=== PATIENT | female | born 1965 | race Caucasian/White ===

== ENCOUNTER → 2017-09-18 07:25 | Outpatient (CLI) | payer OTHER, SELFPAY ==
[2017-09-26 09:17] LABS: HPV Reflexed? NOT INDICATED
== END ==
PROVIDERS: Family Provider Obstetrics & Gynecology; Visit Provider Obstetrics & Gynecology
DX: R87.610 Atypical squamous cells of undetermined significance on cytologic smear of cervix (ASC-US) (principal); R87.810 Cervical high risk human papillomavirus (HPV) DNA test positive
CPT/HCPCS: 88175; G0145

== ENCOUNTER → 2017-12-11 15:42 | Outpatient (CLI) | payer OTHER, SELFPAY ==
--- NOTE | 2017-12-11 15:45 | BI_ITS ---
MAMMOGRAPHY - BILATERAL SCREENING REASON FOR EXAM: Female, 52 years old. Routine annual screening examination. PERTINENT HISTORY: Non-contributory. TECHNIQUE: Digital bilateral breast brandon (3D mammographic acquisition) in the CC and MLO projections. 2-D mediolateral oblique (MLO) and craniocaudad (CC) views of both breasts were obtained. CAD: Full Field Digital Mammography with Computer Added Detection was performed. COMPARISON: Comparison is made with prior study dated March 24, 2016 and July 31, 2013. FINDINGS: Breast Composition: The breasts are heterogeneously dense, which may obscure small masses. There are no dominant masses or suspicious calcifications. Small benign-appearing bilateral axillary lymph nodes. No other significant abnormalities are identified. There has been no significant change since the prior study. BI/SCREENING MAMM (CAD), BILAT IMPRESSION: Stable bilateral screening mammogram. Yearly follow-up mammogram recommended. (A) ASSESSMENT CATEGORY: BIRADS Category 2: Benign. A letter regarding these results will be sent to the patient by the facility within 30 days. Approximately 10% of breast cancers are not detected by mammography. A normal mammogram should not delay biopsy of a clinically suspicious abnormality. [id number] Electronically Signed: Curtis Garrido MD at 8:22 EDT Tel [phone], Service support ,
== END ==
PROVIDERS: Family Provider Internal Medicine; PCP Internal Medicine; Visit Provider Obstetrics & Gynecology
DX: Z12.31 Encounter for screening mammogram for malignant neoplasm of breast (principal)
CPT/HCPCS: 77063; 77067

== ENCOUNTER → 2018-05-08 18:26 | Outpatient (CLI) | payer OTHER, SELFPAY ==
[2018-05-16 12:43] LABS: HPV HC, High Risk Positive (Negative)
[2018-05-16 12:56] LABS: HPV Reflexed? YES, CHARGE PATIENT
== END ==
PROVIDERS: Family Provider Internal Medicine; PCP Internal Medicine; Referring Provider Obstetrics & Gynecology; Visit Provider Obstetrics & Gynecology
DX: Z12.4 Encounter for screening for malignant neoplasm of cervix (principal)
CPT/HCPCS: 87624; 88175; G0145

== ENCOUNTER → 2018-10-09 11:18 | Outpatient (CLI) | payer OTHER, SELFPAY ==
--- NOTE | 2018-10-09 11:22 | CT_ITS ---
STUDY: CT ABDOMEN AND PELVIS WITH CONTRAST REASON FOR EXAM: Female, 53 years old. Right lower quadrant pain RADIATION DOSAGE (If Supplied By Facility): CTDIvol = ( 12.13 ) mGy, DLP = ( 640.55 ) mGycm TECHNIQUE: Transaxial images were obtained from the dome of the diaphragm to the symphysis pubis with oral contrast. 100 IV/Oral Isovue 300 was administered. Sagittal and coronal images were reconstructed. Individualized dose optimization techniques were used for this CT. COMPARISON: None. FINDINGS: The visualized lung bases are unremarkable. The visualized portions of the heart are within normal limits. Normal liver. Normal gallbladder and extrahepatic biliary system. Normal spleen. Normal pancreas. Normal bilateral adrenal glands. Normal right kidney. Normal left kidney. Normal visualized stomach. Normal small intestine. Normal colon. There is a tubular, thick-walled appendix (>7mm), consistent with acute appendicitis. There is periappendiceal inflammation. Appendix best seen on axial images 77 through 81. Normal abdominal aorta. Normal inferior vena cava. Normal retroperitoneum. Normal urinary bladder. There is absence of the uterus consistent with a prior hysterectomy. Normal abdominal wall. Normal osseous structures. CT/Abdomen/Pelvis WITH Contrast IMPRESSION: Thick-walled fluid-filled edematous appendix with periappendiceal inflammation consistent with acute appendicitis. No perforation or abscess noted. No suspicious solid organ abnormality Electronically Signed: Vadim Lovell MD at 13:53 EDT , Service support ,
== END ==
PROVIDERS: Family Provider Internal Medicine; PCP Internal Medicine; Referring Provider Nurse Practitioner; Visit Provider Nurse Practitioner
DX: R10.9 Unspecified abdominal pain (principal)
CPT/HCPCS: 74177; Q9967

== ENCOUNTER 2018-10-09 13:50 | Observation (INO) | payer OTHER, SELFPAY ==
[2018-10-09] VITALS (13 sets, daily range): BP systolic 101–130; BP diastolic 53–75; PULSE 65–108; RESP 14–20; TEMP 36.6–37.6; O2SAT 91–99; BMI 25.2; BMI 25.8; BMI 26.9; BMI 27.0
--- NOTE | 2018-10-09 14:04 | EKG12_ITS ---
Test Reason : PRE-OPERATIVE Blood Pressure : / mmHG Vent. Rate : 085 BPM Atrial Rate : 085 BPM P-R Int : 134 ms QRS Dur : 084 ms QT Int : 372 ms P-R-T Axes : 065 088 018 degrees QTc Int : 442 ms Normal sinus rhythm Nonspecific ST abnormality Abnormal ECG Confirmed by HILARY DOW ([id number]), rewrite editor ORA PEOPLES ([id number]) on 10/11/2018 9:53:30 AM Referred By: Pam Giang Confirmed By:HILARY DOW
--- NOTE | 2018-10-09 14:05 | ED.DCSUM_ITS ---
History of Present Illness Chief Complaint: Abd Pain Detail of Chief Complaint: Appendicitis Informant: Patient Onset: Days - Onset of discomfort Monday Context: Gradual Onset Timing: Continuous Quality: Pain Location: Right lower quadrant Current Severity: Mild Maximum Severity: Moderate Worsened by: Walking and movement Relieved by: Nothing Associated Symptoms: T-max 101, nausea Narrative: Patient is a middle-age woman who smokes 1/2 pack/day and has not had anything to drink for some timE who presents with right lower quadrant pain and CT proven appendicitis. Patient states son has seen Dr. Pantoja in the past. She is present on no medication. She denies cardiac respiratory symptoms. She denies urologic symptoms. Prior similar symptoms: No Recent Illness/Hospitalization: No - Past Medical History (1) No significant past medical history Status: Acute Past Medical History - Allergies and Home Meds Allergies/Adverse Reactions: Allergies No Known Allergies Allergy (Verified 10/09/18 13:53) Past Medical History: None Surgical History: no surgical history Lives: Alone Smoking Status: Light Smoker (<10/day) Alcohol: Sober Drugs: None - Family History Maternal Family History: Reports: No pertinent history Review of Systems General: Reports: Chills, Fever, Malaise. Denies: Subjective, Sweats, Weight loss Eyes: Denies: Visual changes - bilaterally, Diplopia ENT: Denies: Rhinorrhea, Sore throat Cardiovascular: Denies: Chest pain, Palpitations Respiratory: Denies: Dyspnea, Cough, Dyspnea on exertion Gastrointestinal: Reports: Abdominal pain, Nausea, - - Decreased appetite Genitourinary: Denies: Dysuria, Hematuria, Frequency Musculoskeletal: Denies: Back pain, Extremity Pain Skin: Denies: Rash, Wounds Neurological: Denies: Headache, Weakness, Numbness Hematologic: Denies: Easy bruising, Easy bleeding Allergy: Denies: Uticaria, Swelling of the mouth Physical Exam Vital Signs/Narrative: Vital Signs Temp Pulse Resp BP Pulse Ox 10/09/18 13:50 99.6 F H 108 H 16 118/67 94 Inital Vital Signs reviewed: Yes Abdomen: Soft, Nondistended, No masses, Tender, Guarding, Rebound tenderness, Hypoactive bowel sounds, Rovsig's sign. Negative for: Nontender, Normal bowel sounds Rectal: Deferred Back: Nontender, Normal Inspection. Negative for: CVA tenderness Extremities: Nontender, No edema Skin: Normal color, No rash, No Trauma. Negative for: Cyanosis, Diaphoresis, Jaundice Neurological: Alert, Oriented x3, Cranial nerves II-XII grossly intact, Normal S trength, Normal Sensation Psychological: Normal affect, Normal Mood Diagnostic/Tx/Re-eval - Rhythm Strip Rhythm Strip: Sinus Rhythm Rate: 87 Ectopy: None - EKG Initial EKG Interpretation: Sinus Rhythm - Ventricular rate is 85. MA interval is 134 ms. QS duration 84 ms. QT duration 3 and 72 ms. [place] is normal. There is no ossific ST-T wave changes noted in lead II, 3, aVF as well as the 5 and 6. Prior: No Prior - Medical Decision Making Patient with CT proven appendicitis and peritoneal findings. Baseline blood work was obtained and EKG. Patient was started on Zosyn. Case was discussed with surgeon, Dr. Alissa Graves. Plan is OR ED Disposition - Plan for ED Patient: Disposition: Acute Care Hospital [facility] Diagnosis: Acute appendicitis with peritonitis
--- NOTE | 2018-10-09 14:05 | NURSING ---
PAGED DR CARD
[2018-10-09 14:39] LABS: Absolute Lymphocyte Count 3.59 X10^3/uL (0.83-4.51); Absolute Neutrophil Count 12.6 X10^3/uL (2.0-7.7); Basophil# 0.04 X10^3/uL; Basophil% 0.2 % (0-1); Eosinophil# 0.02 X10^3/uL; Eosinophils% 0.1 % (0-5); Hematocrit 35.8 % (37-47); Hemoglobin 12.3 g/dL (12.0-15.0); Lymphocyte # 3.59 X10^3/ul (4.0); Lymphocyte % 20.7 % (19-41); Mean Corp Hgb Conc 34.4 g/dL (32-36); Mean Corpuscular Hgb 32.9 pg (27.0-32.0); Mean Corpuscular Volume 95.7 fL (81-99); Mean Platelet Vol. 10.2 fl (6.2-12.0); Monocyte% 5.8 % (0-10); NRBC Flagged by Analyzer 0 % (0-5); Neutrophil # 12.62 X10^3/uL (2.7-7.7); Neutrophil % 72.6 % (47-70); Platelet Count 267 K/mm3 (150-450); RBC Distribution Width CV 11.9 % (11.6-14.6); RBC Distribution Width SD 41.7 fl (35.1-43.9); Red Blood Count 3.74 M/mm3 (4.2-5.4); White Blood Count 17.4 K/mm3 (4.4-11.0)
[2018-10-09 14:46] LABS: Anion Gap 8 (5-15); BUN 7 mg/dL (7-18); BUN/Creat Ratio 6.7 RATIO (10-20); Chloride 101 mmol/L (98-107); Creatinine, Serum 1.04 mg/dL (0.55-1.02); EST Glomerular Filtration Rate 59 mL/min (>60); Est Glom Filt Rate - Afr Amer 71 mL/min (>60); Glucose 103 mg/dL (74-106); Potassium 3.4 mmol/L (3.5-5.1); Sodium Level 137 mmol/L (136-145)
--- NOTE | 2018-10-09 14:48 | PCM.HP.STD ---
History of Present Illness Date of Admission: 10/09/18 The patient is a 53 year old F presented to the ER due to outpatient CAT scan today which showed acute appendicitis. Patient states since Monday about noon she is been having right lower quadrant pain she rates a 9/10. Patient did have some nausea and vomiting. Patient states that Tylenol did help lessen the pain. Patient states this morning she was able to eat granola bar and yesterday some chicken soup. Patient states she never had pain like this before. Patient states about 8 or 9 years ago she did have a colonoscopy due to questionable IBS-like symptoms which was negative. Patient's white blood cell count 17.4. Patient is currently getting Zosyn IV x1 in the ER. Patient does admit to smoking about less than 5 cigarettes daily as well as 2-4 beers was daily but she has not had any alcohol since Monday. Patient states last bowel movement was on Monday and she states she normally goes about every other day. 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 Denies: Fever HEENT: Denies: Difficulty Swallowing Cardiovascular: Denies: Chest Pain Respiratory: Denies: Cough Gastrointestinal: Reports: Abdominal Pain VTE Information - Inpt Only VTE Present on Admission: Yes VTE Mechan Device Prophylaxis: SCD's VTE Pharm Prophylaxis ordered?: No Patient Problems: Active and Suspected Problems Acute appendicitis with peritonitis (Acute) - Physical Exam General: Alert, Oriented x3, Cooperative, No apparent distress HEENT: Atraumatic Lungs: Normal air movement Cardiovascular: Regular rate Abdomen: Soft, Distended - Mild, Tender - Right lower quadrant, Rovsing sign, equivocal rebound, no guarding Extremities: No edema Neurological: Cranial nerves II-XII grossly intact Psych/Mental Status: Normal Affect Vital Signs Temp Pulse Resp BP Pulse Ox 99.6 F H 81 18 122/72 H 96 10/09/18 14:36 10/09/18 14:36 10/09/18 14:36 10/09/18 14:36 10/09/18 14:36 Oxygen Delivery Method Room Air Weight: 150 lb 9.211 oz Body Mass Index (BMI) 25.8 Laboratory Tests Past 24 Hrs 10/09/18 10/09/18 14:20 14:20 WBC 17.4 H RBC 3.74 L Hgb 12.3 Hct 35.8 L MCV 95.7 MCH 32.9 H MCHC 34.4 RDW Std Deviation 41.7 RDW Coeff of Jeff 11.9 Plt Count 267 MPV 10.2 Immature Gran % (Auto) 0.600 Neut % (Auto) 72.6 H Lymph % (Auto) 20.7 [place] % (Auto) 5.8 Eos % (Auto) 0.1 Baso % (Auto) 0.2 Absolute Neuts (auto) 12.6 H Absolute Lymphs (auto) 3.59 Absolute Nucleated RBC 0.00 Nucleated RBC % 0 Sodium 137 Potassium 3.4 L Chloride 101 Carbon Dioxide 28.0 Anion Gap 8 BUN 7 Creatinine 1.04 H Estim Creat Clear Calc 53.40 Est GFR (MDRD) Af Amer 71 Est GFR (MDRD) Non-Af 59 L BUN/Creatinine Ratio 6.7 L Glucose 103 Calcium 9.0 Assessment/Plan All Active Problems No significant past medical history (Acute) Acute appendicitis with peritonitis (Acute) 53-year-old female with acute appendicitis, leukocytosis 1. Discussed procedure laparoscopic appendectomy, possible open, possible bowel resection along with the risk but not limited to bleeding, infection/abscess, injury to another organ (small bowel, colon, etc.), adhesion, hernia at incision sites, and anesthesia. Patient no further questions this time. Alissa Brannon M.D. Pager: [phone] [facility] [address] [place] [address], [address] [place] [address] Office: [phone]
--- NOTE | 2018-10-09 16:00 | APP_PTH ---
PATIENT: ELENA GALVEZ LOC: MS3 U#:[id number] AGE/SX: 53/F ROOM: MS321 RE10/09/[address]: Dr. Alissa Brannon MD : 1965 BED: 1 DIS: 10/10/2018 SPEC #: [id number] RECD: 10/10/18 07:54 STATUS: ABRAHAM REQ #: [id number] NINFA: 10/09/18 16:[address]: Alissa Brannon DEPT: SURGICAL PATHOLOGY RECD BY: Zach Caal ENTERED: 10/10/18 11:03 SP TYPE: APPENDIX OTHR DR: Dr. Gia Gauthier DO Tissues: Appendix, NOS Procedures: Surgery Specimen Level III HEADER OPERATION: Laparoscopic appendectomy PRE-OP DIAGNOSIS: Acute appendicitis TISSUE SUBMITTED: Appendix MICROSCOPIC DIAGNOSIS Appendix: Acute appendicitis and periappendicitis. GERMAN:lashonda 10/11/18 MICROSCOPIC DESCRIPTION Slides are reviewed. GROSS DESCRIPTION Received is one container labeled with the patient's name and designated appendix. The specimen consists of an L-shaped appendix measuring 7.5 cm in length and up to 1 cm in diameter. The attached periappendiceal adipose tissue measures up to 2 cm in width. The serosa is covered with ferrera, purulent exudate. A focal area suspicious for rupture is noted. The mucosa is congested and hemorrhagic. The lumen does not contain any fecalith. Hearing Therapist sections are submitted in one cassette. / SJ:lashonda 10/10/18 TC:2 CPT: 73555
[2018-10-09] MEDS: Bupiv/Epi 0.5% Mpf 30 ML Vial (17:00)
--- NOTE | 2018-10-09 17:27 | PCM.OPRPT ---
Report of Operation Date of Procedure: 10/09/18 Pre-Operative Diagnosis: Acute appendicitis Post-Operative Diagnosis: Acute suppurative appendicitis Surgery/Procedure Performed:: Laparoscopic appendectomy Type of Anesthesia:: General/Supplemental Anesthesiologist: Mary Beth Melchor Special Medications: Zosyn 4.5 g IV x1 given in the ER for acute appendicitis Specimen's removed: Appendix Estimated Blood Loss (mL): 10 cc Fluids Replaced: 1000 cc Description of Procedure: Indications: 53-year-old female presented to the ER with right lower quadrant pain since Monday at noon. On workup she was found to have acute appendicitis on CT and a leukocytosis of 17.4. Patient was started on antibiotics in the ER for acute appendicitis-Zosyn 4.5 g IV x1 Description of the procedure: The patient was placed on operating table in supine position. General anesthesia was induced. A timeout was completed verifying correct patient, procedure, position and special equipment prior to beginning procedure. A Garcia catheter was placed. Abdomen was prepped and draped in usual sterile fashion. Incision was made in the natural skin line above the umbilicus with a 15 blade scalpel. The fascia was elevated and incised. Entry into the peritoneum was confirmed visually and no bowel was noted in the vicinity of the incision. The Spencer trocar was placed under direct vision. Abdomen insufflated with a pressure of 12-15 mmHg. Patient tolerated insertion well. The scope was inserted and the abdomen inspected. No injuries from initial trocar placement were noted. Minimal amount of fluid was seen in the right lower quadrant, which was suctioned. An direct visualization 2 -5 mm trocars were placed one above the symphysis pubis and below the hairline and one in the left lower quadrant lateral to the rectus muscle. Care is taken to avoid injury to the bladder and inferior epigastric vessels. The table was placed in Trendelenburg position with the right side elevated. The appendix was grasped with atraumatic grasper and elevated. It was noted to be inflamed. A window was developed in the mesoappendix at the point between the base of the appendix and the cecum. An endoscopic 45 mm linear cutting stapler blue load was then used to divide and staple the base of the appendix. Enseal was used to divide the mesoappendix. The appendix was withdrawn into the Spencer trocar after being placed endoscopically retrieval bag. Appendix was sent to pathology. The appendiceal stump was then irrigated and hemostasis was assured. Fluid was suctioned no other pathology was identified. Secondary trochars were removed under direct visualization. No bleeding was noted trocar sites. The laparoscope withdrawn and the umbilical trocar removed. The abdomen was allowed to collapse. Local anesthesia of 20 mL of 0.5% Marcaine was used at the incision sites. The umbilical trocar site was closed with the [id number] 0 Vicryl suture. The skin was closed up to clear sutures of 4-0 Monocryl and Steri-Strips. The patient was extubated. The patient tolerated the procedure well and was taken to the postanesthesia care unit in satisfactory condition. - Complications none
--- NOTE | 2018-10-09 17:34 | DCINST_ITS ---
Discharge Diet: Light diet - advance as tolerated Discharge Activity: May not drive while taking narcotic pain medications. May shower in (days): 1 Lifting Restrictions: No lifting greater than 20 pounds x 2 weeks no strenuous exercise for 6 wks Call your doctor if your incision/area has: Continuous Slow Oozing, Sudden Increased Bleeding, Increased Pain/ Swelling, Increased Redness, Foul Smelling Discharge, Swelling at the incision site Call your doctor if you observe: Fever of 101 or Higher Remove Dressing in (days):: 1 Additional Instructions: Okay to take ibuprofen 400-600 mg PO q6hr PRN along with the percocet. Avoid Tylenol since there is already Tylenol in the percocet. Take all pain meds with food. percocet can cause constipation recommend taking daily stool softener (i.e. Colace/docusate) while taking the pain meds. Recommend starting some MiraLAX later tomorrow if no bowel movement. If still no bowel movement the following day recommend taking magnesium citrate half the bottle and waiting 4-6 hours if still no results take the other half the bottle. Medications to take at Discharge Oxycodone HCl/Acetaminophen [Percocet 5/325] 1 - 2 tab PO Q6H PRN PRN 4 Days #20 tab 10/09/18 Allergies/Adverse Reactions: Allergies No Known Allergies Allergy (Verified 10/09/18 13:53) The following prescriptions were given: Oxycodone HCl/Acetaminophen [Percocet 5/325] 1 - 2 tab PO Q6H PRN PRN 4 Days #20 tab PRN Reason: Pain Transmission Status: Received by [facility]/pharmacy #[id number] Primary Care Physician: Gia Gauthier DO [Primary Care Provider] - Test Results: Test results from this visit will be discussed in further detail at your follow- up appointment, if applicable. Please Follow Up With: Alissa Brannon MD - Any questions or concerns after 5 PM/weekends call [phone] When: Call the office for follow-up appointment in 2 weeks Proposed Discharge Date: 10/09/18
[2018-10-09] MEDS: Ketorolac 15 MG/ML Vial IV (17:45)
[2018-10-09] MEDS: Lactated Ringers 1,000 ML 125 ML IV (20:49)
[2018-10-09] MEDS: Acetaminophen 325 MG Tablet 650 MG PO (22:22)
[2018-10-10 01:02] VITALS: BP 92/52; PULSE 59; RESP 18; TEMP 36.6; O2SAT 96
[2018-10-10] MEDS: Ketorolac 15 MG/ML Vial IV ×2 (01:26→09:16)
[2018-10-10 04:58] VITALS: BP 96/60; PULSE 52; RESP 16; TEMP 36.4; O2SAT 98
[2018-10-10] MEDS: Acetaminophen 325 MG Tablet 650 MG PO (06:40)
[2018-10-10] MEDS: Docusate Sodium 100 MG Capsule PO (09:16)
[2018-10-10 09:24] VITALS: BP 94/44; PULSE 51; RESP 16; TEMP 36.6; O2SAT 97
--- NOTE | 2018-10-10 09:36 | PCM.PN.SRG ---
Patient Problems: Active and Suspected Problems Acute appendicitis with peritonitis (Acute) Subjective: Patient evaluated resting comfortably in bed. She notes generalized abdominal discomfort especially in the right side. She notes this is improved since admission. She denies nausea, vomiting. Negative flatus and BM. - Physical Exam General: Alert, Oriented x3, Cooperative Abdomen: Soft, Hypoactive Bowel Sounds, Distended, Tender, - - Incisions c/d/i. No erythema or infection noted. Dried blood noted. No active bleeding. Vital Signs Temp Pulse Resp BP Pulse Ox 97.8 F 51 L 16 94/44 L 97 10/10/18 09:24 10/10/18 09:24 10/10/18 09:24 10/10/18 09:24 10/10/18 09:24 Oxygen Delivery Method Room Air Weight: 157 lb 1.6 oz Body Mass Index (BMI) 26.9 Intake and Output for Last 24 Hours 10/08/18 10/09/18 10/10/18 23:59 23:59 23:59 Intake Total 1100 / 1801 1098.8 / 1098.8 Output Total 400 / 400 Balance 1100 / 1801 698.8 / 698.8 Laboratory Tests Past 24 Hrs 10/09/18 10/09/18 14:20 14:20 WBC 17.4 H RBC 3.74 L Hgb 12.3 Hct 35.8 L MCV 95.7 MCH 32.9 H MCHC 34.4 RDW Std Deviation 41.7 RDW Coeff of Jeff 11.9 Plt Count 267 MPV 10.2 Immature Gran % (Auto) 0.600 Neut % (Auto) 72.6 H Lymph % (Auto) 20.7 [place] % (Auto) 5.8 Eos % (Auto) 0.1 Baso % (Auto) 0.2 Absolute Neuts (auto) 12.6 H Absolute Lymphs (auto) 3.59 Absolute Nucleated RBC 0.00 Nucleated RBC % 0 Sodium 137 Potassium 3.4 L Chloride 101 Carbon Dioxide 28.0 Anion Gap 8 BUN 7 Creatinine 1.04 H Estim Creat Clear Calc 53.40 Est GFR (MDRD) Af Amer 71 Est GFR (MDRD) Non-Af 59 L BUN/Creatinine Ratio 6.7 L Glucose 103 Calcium 9.0 Medical Necessity - Tobacco Use Smoking Status: Current every day smoker Tobacco Use: Cigarettes Assessment/Plan All Active Problems No significant past medical history (Acute) Acute appendicitis with peritonitis (Acute) I am following this patient in conjunction with Dr. Brannon S/p laparoscopic appendectomy Ready for discharge Code Visit Inpatient E&M: 68950 [facility] Hosp L1 - No charge
== END 2018-10-10 11:36 | disposition home or self-care (01) ==
LOC: ED 14:35 → SDC 14:37 → AC 14:38 → MS3 18:19
PROVIDERS: Admitting Provider Surgery; Emergency Provider Emergency Medicine; Family Provider Internal Medicine; PCP Internal Medicine; Visit Provider Surgery
PROC: 0DTJ4ZZ Resection of Appendix, Percutaneous Endoscopic Approach (ICD-10-PCS; CPT 44970; principal; 2018-10-09 15:40)
DX: K35.33 Acute appendicitis with perforation, localized peritonitis, and gangrene, with abscess (principal); F17.210 Nicotine dependence, cigarettes, uncomplicated
CPT/HCPCS: 00840; 44970; 80048; 85025; 88304; 93005; 96361; 96365; 96366; 96375; 96376; 99218; 99284; J7030; J7120; A4216; C1760; G0378; J2405

== ENCOUNTER → 2018-10-16 13:23 | Outpatient (CLI) | payer OTHER, SELFPAY ==
[2018-10-11 11:21] VITALS: BMI 25.8
[2018-10-16 15:31] LABS: Absolute Lymphocyte Count 3.74 X10^3/uL (0.83-4.51); Absolute Neutrophil Count 3.8 X10^3/uL (2.0-7.7); Basophil# 0.04 X10^3/uL; Basophil% 0.5 % (0-1); Eosinophil# 0.29 X10^3/uL; Eosinophils% 3.4 % (0-5); Hematocrit 32.6 % (37-47); Hemoglobin 10.9 g/dL (12.0-15.0); Lymphocyte # 3.74 X10^3/ul (4.0); Lymphocyte % 43.8 % (19-41); Mean Corp Hgb Conc 33.4 g/dL (32-36); Mean Corpuscular Hgb 33.4 pg (27.0-32.0); Mean Platelet Vol. 10.3 fl (6.2-12.0); Monocyte# 0.59 X10^3/uL; Monocyte% 6.9 % (0-10); NRBC Flagged by Analyzer 0 % (0-5); Neutrophil # 3.84 X10^3/uL (2.7-7.7); Platelet Count 380 K/mm3 (150-450); RBC Distribution Width CV 11.8 % (11.6-14.6); RBC Distribution Width SD 43.3 fl (35.1-43.9); Red Blood Count 3.26 M/mm3 (4.2-5.4); White Blood Count 8.5 K/mm3 (4.4-11.0)
[2018-10-16 15:50] LABS: ALB/GLOB Ratio 0.8 RATIO (0.9-2.4); AST(SGOT) 21 U/L (15-37); Alanine Aminotransfer ALT/SGPT 40 U/L (13-56); Albumin, Serum 3.4 g/dL (3.2-5.0); Alkaline Phosphatase 86 U/L (45-117); Anion Gap 8 (5-15); BUN 8 mg/dL (7-18); BUN/Creat Ratio 7.4 RATIO (10-20); Calcium,Total 9.2 mg/dL (8.5-10.1); Chloride 105 mmol/L (98-107); Creatinine, Serum 1.08 mg/dL (0.55-1.02); EST Glomerular Filtration Rate 56 mL/min (>60); Est Glom Filt Rate - Afr Amer 68 mL/min (>60); Globulin 4.1 g/dL (2.2-4.2); Glucose 82 mg/dL (74-106); Potassium 4.1 mmol/L (3.5-5.1); Protein, Total 7.5 g/dL (6.4-8.2); Sodium Level 142 mmol/L (136-145)
== END ==
PROVIDERS: Family Provider Internal Medicine; PCP Internal Medicine; Referring Provider Nurse Practitioner; Visit Provider Nurse Practitioner
DX: R14.0 Abdominal distension (gaseous) (principal); D72.829 Elevated white blood cell count, unspecified
CPT/HCPCS: 36415; 80053; 85025

== ENCOUNTER → 2018-12-04 17:53 | Outpatient (CLI) | payer OTHER, SELFPAY ==
[2018-10-11 11:21] VITALS: BMI 25.8
== END ==
PROVIDERS: Family Provider Internal Medicine; PCP Internal Medicine; Referring Provider Obstetrics & Gynecology; Visit Provider Obstetrics & Gynecology
DX: Z78.0 Asymptomatic menopausal state (principal)

== ENCOUNTER → 2018-12-20 16:46 | Outpatient (CLI) | payer OTHER, SELFPAY ==
[2018-10-11 11:21] VITALS: BMI 25.8
--- NOTE | 2018-12-20 16:48 | BI_ITS ---
MAMMOGRAPHY - BILATERAL SCREENING REASON FOR EXAM: Female, 53 years old. Routine annual screening examination. PERTINENT HISTORY: Non-contributory. TECHNIQUE: Digital bilateral breast mahad (3D mammographic acquisition) in the CC and MLO projections. 2-D mediolateral oblique (MLO) and craniocaudad (CC) views of both breasts were obtained. CAD: Full Field Digital Mammography with Computer Added Detection was performed. COMPARISON: Comparison is made with prior examination dated December 11, 2017 and March 24, 2016. FINDINGS: Breast Composition: The breasts are heterogeneously dense, which may obscure small masses. There are no dominant masses or suspicious calcifications. Stable small benign-appearing bilateral axillary lymph nodes. No other significant abnormalities are identified. There has been no significant change since the prior study. BI/SCREEN MAMM (CAD) W/MAHAD BILAT IMPRESSION: Stable bilateral screening mammogram. Yearly follow-up mammogram recommended. (A) ASSESSMENT CATEGORY: BIRADS Category 2: Benign. A letter regarding these results will be sent to the patient by the facility within 30 days. Approximately 10% of breast cancers are not detected by mammography. A normal mammogram should not delay biopsy of a clinically suspicious abnormality. [id number] Electronically Signed: Curtis Garrido, at 8:46 EDT , Service support ,
== END ==
PROVIDERS: Family Provider Internal Medicine; PCP Internal Medicine; Referring Provider Nurse Practitioner; Visit Provider Nurse Practitioner
DX: Z12.31 Encounter for screening mammogram for malignant neoplasm of breast (principal)
CPT/HCPCS: 77063; 77067

== ENCOUNTER → 2019-05-16 | Outpatient (CLI) | payer OTHER, SELFPAY ==
[2018-10-11 11:21] VITALS: BMI 25.8
[2019-05-21 10:26] LABS: HPV APTIMA, High Risk Negative (Negative)
== END | disposition home or self-care (01) ==
LOC: LABSPEC 16:19
PROVIDERS: PCP Internal Medicine; Visit Provider Obstetrics & Gynecology
DX: Z12.4 Encounter for screening for malignant neoplasm of cervix (principal)
CPT/HCPCS: 87624; 88175; G0145

== ENCOUNTER → 2019-12-31 12:09 | Outpatient (CLI) | payer OTHER, SELFPAY ==
[2018-10-11 11:21] VITALS: BMI 25.8
--- NOTE | 2019-12-31 12:11 | BI_ITS ---
MAMMOGRAPHY - BILATERAL SCREENING REASON FOR EXAM: Female, 54 years old. Routine annual screening examination. PERTINENT HISTORY: Non-contributory. TECHNIQUE: Digital bilateral breast mahad (3D mammographic acquisition) in the CC and MLO projections. 2-D mediolateral oblique (MLO) and craniocaudad (CC) views of both breasts were obtained. CAD: Full Field Digital Mammography with Computer Added Detection was performed. COMPARISON: Comparison is made with prior examination dated 12/20/2018 and 12/11/2017. FINDINGS: Breast Composition: The breasts are heterogeneously dense, which may obscure small masses. There are no dominant masses or suspicious calcifications. Stable small benign-appearing bilateral axillary lymph nodes. No other significant abnormalities are identified. There has been no significant change since the prior study. BI/SCREEN MAMM (CAD) W/MAHAD BILAT IMPRESSION: Stable bilateral screening mammogram. Yearly follow-up mammogram recommended. (A) ASSESSMENT CATEGORY: BIRADS Category 2: Benign. A letter regarding these results will be sent to the patient by the facility within 30 days. Approximately 10% of breast cancers are not detected by mammography. A normal mammogram should not delay biopsy of a clinically suspicious abnormality. [id number] Electronically Signed: Curtis Garrido, at 14:23 EDT , Service support ,
== END ==
PROVIDERS: PCP Internal Medicine; Referring Provider Obstetrics & Gynecology; Visit Provider Obstetrics & Gynecology
DX: Z12.31 Encounter for screening mammogram for malignant neoplasm of breast (principal)
CPT/HCPCS: 77063; 77067

== ENCOUNTER → 2020-03-26 08:17 | Outpatient (CLI) | payer OTHER, SELFPAY ==
[2018-10-11 11:21] VITALS: BMI 25.8
--- NOTE | 2020-03-26 08:20 | BD_ITS ---
STUDY: DUAL ENERGY X-RAY ABSORPTIOMETRY / DXA REASON FOR EXAM: Female, 55 years old. Age of av 50. Pat is 151.0# and 63.5 and quot; a loss of .5'' per pat. Quit smoking 1 year ago. Takes a multi-vit. Does a little exercising. TECHNIQUE: Bone Mineral Density (BMD) measurements of lumbar spine and bilateral hips were obtained. COMPARISON: Comparison is made with prior study dated 03/24/2016. FINDINGS: Lumbar Spine (L1-L4): g/cm2 (1.108) / T-score (-0.6) / Z-score (0.3) Findings are suggestive of normal bone density with a low fracture risk. Left Femur Total: g/cm2 (0.815) / T-score (-1.5) / Z-score (-0.8) Left Femoral Neck: g/cm2 (0.795) / T-score (-1.7) / Z-score (-0.7) Right Femur Total: g/cm2 (0.810) / T-score (-1.6) / Z-score (-0.9) Right Femoral Neck: g/cm2 (0.757) / T-score (-2.0) / Z-score (-1.0) The T-Scores on the most recent prior examination were: Lumbar Spine (L1-L4): There has been improvement of bone density since the previous examination. Left Femur Total: which represents an improvement of 1.4%. Right Femur Total: which represents a worsening of 2.9%. BD/Dexa Bone Density Study IMPRESSION: The patient is considered normal as outlined below according to World Elias Organization (WHO) criteria with a moderate fracture risk. There has been improvement of bone density since the previous examination. Reference Information: The T-score is the number of standard deviations above or below the standard which is normal for young adults at their peak bone mineral density. The World Health Organization (WHO) interprets the T-scores as follows: Above -1 Normal bone density Between -1 and -2.5 Osteopenia Equal to / or below -2.5 Osteoporosis As a practical clinical guideline, osteopenia may be graded as follows: Mild -1 through -1.5 Moderate -1.6 through -2.0 Severe -2.1 through -2.4 The Z-score is the number of standard deviations above or below age-matched controls. A Z-score of less than -1.5 would be considered abnormal. References: 1. NIH Osteoporosis and Related Bone Diseases www osteo.org 2. International Society for Clinical Densitometry www iscd.org 3. National Osteoporosis Foundation www nof.org Electronically Signed: Curtis Garrido, at 15:46 EST , Service support ,
== END ==
PROVIDERS: PCP Internal Medicine; Referring Provider Internal Medicine; Visit Provider Internal Medicine
DX: Z78.0 Asymptomatic menopausal state (principal)
CPT/HCPCS: 77080

== ENCOUNTER → 2020-05-29 14:24 | Outpatient (CLI) | payer OTHER, SELFPAY ==
[2018-10-11 11:21] VITALS: BMI 25.8
[2020-05-29 14:32] LABS: Bacteria 0 SEEN /hpf (None Seen); Mucous, Urine 0 SEEN /hpf (<or=2+); Red Blood Cells-Urine 0 SEEN /hpf (0-5); White Blood Cells 0 SEEN /hpf (0-5)
[2020-05-29 17:41] LABS: Color, Urine Yellow (Yellow); Glucose, Dipstick Normal (Normal); Ketone-Dipstick 5 mg/dl (Negative); Leukocyte Esterase-Dipstick Negative /ul (Negative); Nitrite-Dipstick Negative (Negative); Occult Blood-Urine Negative /ul (Negative); Protein-Dipstick Negative (Negative); Urine Bilirubin Dipstick Negative (Negative); Urine Clarity Clear (Clear); Urine Urobilinogen Normal (Normal)
[2020-05-29 17:42] LABS: Absolute Lymphocyte Count 3.79 X10^3/uL (0.83-4.51); Absolute Neutrophil Count 4.4 X10^3/uL (2.0-7.7); Basophil# 0.04 X10^3/uL; Basophil% 0.4 % (0-1); Eosinophil# 0.19 X10^3/uL; Eosinophils% 2.1 % (0-5); Hematocrit 41.3 % (37-47); Hemoglobin 13.6 g/dL (12.0-15.0); Lymphocyte # 3.79 X10^3/ul (4.0); Lymphocyte % 42.4 % (19-41); Mean Corp Hgb Conc 32.9 g/dL (32-36); Mean Corpuscular Hgb 31.7 pg (27.0-32.0); Mean Corpuscular Volume 96.3 fL (81-99); Mean Platelet Vol. 10.3 fl (6.2-12.0); Monocyte# 0.53 X10^3/uL; Monocyte% 5.9 % (0-10); NRBC Flagged by Analyzer 0 % (0-5); Neutrophil # 4.36 X10^3/uL (2.7-7.7); Platelet Count 376 K/mm3 (150-450); RBC Distribution Width CV 12.2 % (11.6-14.6); RBC Distribution Width SD 43.1 fl (35.1-43.9); Red Blood Count 4.29 M/mm3 (4.2-5.4); White Blood Count 8.9 K/mm3 (4.4-11.0)
[2020-05-29 17:47] LABS: Squamous Epithelial Cells - UA 0-5 SEEN /hpf (5-10)
[2020-05-29 17:53] LABS: D-Dimer Quantitative (DVT/PE) < 0.27 FEU/ug/m (0.27-0.49)
[2020-05-29 18:01] LABS: ALB/GLOB Ratio 1.1 RATIO (0.9-2.4); AST(SGOT) 24 U/L (15-37); Alanine Aminotransfer ALT/SGPT 33 U/L (13-56); Albumin, Serum 4.4 g/dL (3.2-5.0); Alkaline Phosphatase 83 U/L (45-117); Anion Gap 7 (5-15); BUN 16 mg/dL (7-18); BUN/Creat Ratio 13.7 RATIO (10-20); CPK Total, Creatine Kinase 109 U/L (26-192); Calcium,Total 9.7 mg/dL (8.5-10.1); Chloride 104 mmol/L (98-107); Creatinine, Serum 1.17 mg/dL (0.55-1.02); EST Glomerular Filtration Rate 51 mL/min (>60); Est Glom Filt Rate - Afr Amer 62 mL/min (>60); Glucose 76 mg/dL (74-106); Potassium 3.5 mmol/L (3.5-5.1); Protein, Total 8.4 g/dL (6.4-8.2); Sodium Level 139 mmol/L (136-145); Thyroid Stim Hormone (TSH) 0.15 uIU/mL (0.358-3.74)
[2020-05-29 18:12] LABS: Microalbumin,Random Urine < 5.0 mg/L (NO RANGE EST.)
== END ==
PROVIDERS: PCP Internal Medicine; Referring Provider Internal Medicine; Visit Provider Internal Medicine
DX: R07.9 Chest pain, unspecified (principal); E78.5 Hyperlipidemia, unspecified
CPT/HCPCS: 36415; 80053; 81001; 82043; 82550; 82570; 84443; 84484; 85025; 85379

== ENCOUNTER → 2020-06-01 15:53 | Outpatient (CLI) | payer OTHER, SELFPAY ==
[2018-10-11 11:21] VITALS: BMI 25.8
--- NOTE | 2020-06-01 15:57 | CT_ITS ---
STUDY: CTA CHEST REASON FOR EXAM: Female, 55 years old. D DIMER, ELEVATED -- RULE OUT PE VS OTHER RADIATION DOSAGE (If Supplied By Facility): CTDIvol = ( 8.28 ) mGy, DLP = ( 326.97 ) mGycm TECHNIQUE: The examination was performed with the intravenous administration of IV 100mL Isovue-370. Post-processing of the angiographic images was performed, with multiplanar reformation and 3D reconstruction. Individualized dose optimization techniques were used for this CT. COMPARISON: None. FINDINGS: Normal enhancement of the main pulmonary artery and right and left pulmonary arteries. Normal enhancement of the bilateral peripheral pulmonary arteries. There is no demonstrated pulmonary embolism. Normal thoracic aorta and visualized great vessels. There is no demonstrated aortic dissection. Normal heart and pericardium. Normal mediastinum. Normal hilar regions. Normal visualized trachea and bronchi. The lungs are well expanded. Mild bilateral apical scarring. 4 mm noncalcified nodule peripherally the right lower lobe the lungs on image 104 and follow-up CT is recommended in 12 months document stability. Normal pleura. Normal chest wall structures. Normal osseous structures. Normal visualized upper abdomen. CT/CTA Chest W/WO Contrast IMPRESSION: 1. No CT evidence of pulmonary embolism. 2. 4 mm noncalcified right lower lobe nodule and follow-up CT is recommended in 12 months document stability. Electronically Signed: Nolberto Morales MD at 17:13 EDT Tel , Service support ,
== END ==
PROVIDERS: PCP Internal Medicine; Referring Provider Internal Medicine; Visit Provider Internal Medicine
DX: R79.89 Other specified abnormal findings of blood chemistry (principal)
CPT/HCPCS: 71275; Q9967

== ENCOUNTER → 2020-06-03 07:09 | Outpatient (CLI) | payer OTHER, SELFPAY ==
[2018-10-11 11:21] VITALS: BMI 25.8
[2020-06-03 11:21] LABS: Cholesterol 200 mg/dL (200); Free T3 2.8 pg/mL (2.18-3.98); High Density Lipoprotein 60 mg/dL; T4 Free Direct 1.05 ng/dL (0.76-1.46); Triglycerides 147 mg/dL; Very Low Density Lipoprotein 29 mg/dL (5-40)
== END ==
PROVIDERS: PCP Internal Medicine; Referring Provider Internal Medicine; Visit Provider Internal Medicine
DX: E78.5 Hyperlipidemia, unspecified (principal); F41.9 Anxiety disorder, unspecified
CPT/HCPCS: 36415; 80061; 84439; 84481

== ENCOUNTER → 2020-06-12 07:09 | Outpatient (CLI) | payer OTHER, SELFPAY ==
[2018-10-11 11:21] VITALS: BMI 25.8
--- NOTE | 2020-06-12 07:14 | ECHOD_ITS ---
Reason For Study: Chest Pain Procedure This was a 2D Doppler, Color Flow transthoracic echocardiogram. Exam performed in department. Left Ventricle Normal LV size. Apical false tendon noted. Left ventricular systolic function is normal. The estimated ejection fraction is 60 %. Normal diastology for age. No regional wall motion abnormalities noted. Right Ventricle Normal RV size. Normal systolic function. Atria Normal left atrium. Normal right atrium. Mitral Valve Normal mitral valve. Tricuspid Valve Normal tricuspid valve. Aortic Valve Normal aortic valve. Trisinus/trileaflet aortic valve. Pulmonic Valve Normal pulmonic valve. Great Vessels Normal aortic root. The pulmonary artery is normal size. Normal inferior vena cava. Pericardium/Pleural No pericardial effusion. MMode/2D Measurements & Calculations LVIDd: 4.5 cm IVSd: 0.74 cm Ao root diam: 2.6 cm LVIDs: 2.7 cm LVPWd: 0.74 cm RVDd: 2.3 cm FS: 41.7 % LAV(MOD-bp): 25.9 ml LVAd ap4: 24.4 cm2 SV(MOD-sp4): 46.0 ml LAV(MOD-bp) Indexed: 15.1 ml/m2 EDV(MOD-sp4): 67.1 ml LAV(MOD-sp2): 33.5 ml EDV(sp4-el): 68.1 ml LAV(MOD-sp4): 19.9 ml LVAs ap4: 12.4 cm2 ESV(MOD-sp4): 21.1 ml ESV(sp4-el): 20.6 ml EF(MOD-sp4): 68.6 % EF(sp4-el): 69.7 % SV(sp4-el): 47.4 ml LA A4 area: 10.6 cm2 LA dimension(2D): 2.8 cm RA A4 area: 9.4 cm2 Doppler Measurements & Calculations MV E max alfonso: 103.8 cm/sec Lat Peak E' Alfonso: 15.1 cm/sec Med Peak E' Alfonso: 9.6 cm/sec MV A max alfonso: 50.2 cm/sec E/E' lat: 6.9 E/E' med: 10.9 MV E/A: 2.1 Ao V2 max: 107.8 cm/sec LV V1 max: 95.5 cm/sec PA V2 max: 123.3 cm/sec Ao max P.7 mmHg LV V1 max P.6 mmHg Ao V2 mean: 72.3 cm/sec Ao mean P.3 mmHg Ao V2 VTI: 25.4 cm TR max alfonso: 207.4 cm/sec TR max P.2 mmHg ECHO/Echo Complete Interpretation Summary Normal LV size. Left ventricular systolic function is normal. The estimated ejection fraction is 60 %. Apical false tendon noted. Structurally normal valves. Ordering Physician: Gia Gauthier Referring Physician: Gia Gauthier Performed By: Shruti Fabian, JAYY, RVT
--- NOTE | 2020-06-12 17:18 | STRESSREP ---
Stress Test Report Exercise stress test. 55-year-old lady with a history of chest pain. Stress protocol: Resting EKG demonstrates sinus bradycardia with a rate of 54 bpm. Resting blood pressure is 128/78 mmHg. The patient exercised according to the regular New protocol for a total duration of 7 minutes and 30 seconds. Patient completed 1 minute and 30 seconds into stage III of the New protocol. The maximum heart rate attained was 146 bpm which was 89% of max impacted heart rate the maximum workload was 9.3 metabolic equivalents. At rest there were no ST or T wave changes noted to suggest ischemia and at peak exercise upsloping ST changes were noted which did not meet the criteria for ischemia the test was terminated due to dyspnea and fatigue. No clinical angina was noted. Myocardial perfusion protocol. 10.7 mCi of technetium 99m sestamibi was injected at rest. The patient exercised according to regular New protocol. At peak exercise 33.2 mCi of technetium 99m sestamibi was injected stress images were obtained stress and rest images were reconstructed and compared in the short axis vertical long and horizontal long axis. Gated images were also obtained. Perfusion SPECT analysis: Review of the stress images demonstrate normal uptake of tracer noted in all areas of the myocardium. The resting images similar demonstrate normal uptake of tracer noted in all areas of the myocardium. No areas of previous infarct are also noted. Gated SPECT analysis: The gated ejection fraction is 65%. Conclusion: Normal exercise myocardial perfusion stress test at a moderate workload. Preserved ejection fraction.
== END ==
PROVIDERS: PCP Internal Medicine; Referring Provider Internal Medicine; Visit Provider Internal Medicine
DX: R07.9 Chest pain, unspecified (principal); F41.9 Anxiety disorder, unspecified
CPT/HCPCS: 78452; 93017; 93306; A9500; A4216

== ENCOUNTER 2021-06-03 07:41 | Outpatient (CLI) | payer OTHER, SELFPAY ==
--- NOTE | 2021-06-03 07:47 | US_ITS ---
STUDY: ABDOMINAL ULTRASOUND - RIGHT UPPER QUADRANT REASON FOR VISIT: Female, 56 years old ABD PAIN TECHNIQUE: Ultrasound evaluation of the right upper quadrant was performed with real-time and static ferrera-scale imaging. TECHNICAL QUALITY: Adequate. COMPARISON: CTA chest from 06/01/2020. CT abdomen pelvis with contrast from 10/09/2018. FINDINGS: Liver: The liver measures 17.2 cm. There is normal echogenicity of the liver. The bile ducts are within normal limits. There is hepatic color flow. The direction of portal flow is hepatopetal. There is no demonstrated mass lesion. Gallbladder: Normal distended gallbladder. The gallbladder wall measures 1 mm. There is a negative sonographic Chase''s sign. There is no pericholecystic fluid. There are no gallstones. Common Bile Duct (C.B.D.): The common bile duct measures 4 mm and is within normal limits. Pancreas: The head, body, and visualized tail are unremarkable. Right Kidney: Normal size of the right kidney. The right kidney measures 10.9 x 4.8 x 3.7 cm. Normal renal cortex. The right cortex measures 1.1 cm. There is no demonstrated renal mass or cyst. There is no right hydronephrosis. US/Gallbladder IMPRESSION: Normal right upper quadrant ultrasound examination. Electronically Signed: Richi aSlinas, at 9:32 EDT ,
== END 2021-06-03 23:59 | disposition home or self-care (01) ==
LOC: US 07:45
PROVIDERS: PCP Internal Medicine; Referring Provider Nurse Practitioner; Visit Provider Nurse Practitioner
DX: R10.9 Unspecified abdominal pain (principal)
CPT/HCPCS: 76705

== ENCOUNTER → 2021-10-07 | Outpatient (CLI) | payer OTHER, SELFPAY ==
--- NOTE | 2021-10-07 08:13 | BI_ITS ---
MAMMOGRAPHY - BILATERAL SCREENING REASON FOR EXAM: Female, 56 years old. Routine annual screening examination. PERTINENT HISTORY: Non-contributory. TECHNIQUE: Digital bilateral breast mahad (3D mammographic acquisition) in the CC and MLO projections. 2-D mediolateral oblique (MLO) and craniocaudad (CC) views of both breasts were obtained. CAD: Full Field Digital Mammography with Computer Added Detection was performed. COMPARISON: Comparison is made with prior study dated 12/31/2019 and 12/20/2018. FINDINGS: Breast Composition: The breasts are extremely dense, which lowers the sensitivity of mammography. There are no dominant masses or suspicious calcifications. Stable small benign-appearing bilateral axillary lymph nodes. No other significant abnormalities are identified. There has been no significant change since the prior study. BI/SCRN MAMM (CAD)W/MAHAD BILAT IMPRESSION: Stable bilateral screening mammogram. Yearly follow-up mammogram recommended. (A) ASSESSMENT CATEGORY: BIRADS Category 1: Negative. A letter regarding these results will be sent to the patient by the facility within 30 days. Approximately 10% of breast cancers are not detected by mammography. A normal mammogram should not delay biopsy of a clinically suspicious abnormality. [id number] Electronically Signed: Curtis Garrido MD at 8:53 EDT ,
== END | disposition home or self-care (01) ==
LOC: OPBI 08:06
PROVIDERS: PCP Internal Medicine; Visit Provider Internal Medicine
DX: Z12.31 Encounter for screening mammogram for malignant neoplasm of breast (principal)
CPT/HCPCS: 77063; 77067

== ENCOUNTER → 2022-01-01 | Outpatient (CLI) | payer OTHER, SELFPAY ==
--- NOTE | 2022-01-01 07:54 | CT_ITS ---
HISTORY: 1 yr f/u on an incidental finding of a lung nodule. TECHNIQUE: Helically acquired images were obtained of the chest without contrast. A radiation dose optimization technique was used for this scan. 792 images. COMPARISON: 06/01/2020. FINDINGS: LARGE AIRWAYS: Patent. LUNGS: Renal biapical scarring. Stable 3 mm and 4 mm right lower lobe noncalcified nodules. PLEURA: No pneumothorax or significant pleural effusion. HEART/PERICARDIUM: Heart within normal limits in size. Mild coronary artery calcification. No pericardial effusion. VESSELS: Thoracic aorta nondilated. MEDIASTINUM/TYRONE: No pathologically enlarged adenopathy. UPPER ABDOMEN: Unremarkable. BONES: Chronic degenerative endplate changes of the mid thoracic spine. CT/Chest without Contrast IMPRESSION: Stable 3-4 mm right lower lobe pulmonary nodules. Electronically Signed: Arlene Hernandez MD at 15:14 EDT ,
== END | disposition home or self-care (01) ==
PROVIDERS: PCP Internal Medicine; Referring Provider Internal Medicine; Visit Provider Internal Medicine
DX: R91.1 Solitary pulmonary nodule (principal)
CPT/HCPCS: 71250

== ENCOUNTER → 2022-05-04 | Outpatient (CLI) | payer OTHER, SELFPAY ==
--- NOTE | 2022-05-04 13:55 | RAD_ITS ---
STUDY: X-RAY - PELVIS AND RIGHT HIP REASON FOR EXAM: Female, 57 years old. Groin pain. TECHNIQUE: 3 views of the pelvis and hip. COMPARISON: None. FINDINGS: There is a non-specific bowel gas pattern. Phleboliths. Normal bilateral iliac wings, sacroiliac joints and visualized sacrum. Normal bilateral superior and inferior pubic rami. Normal pubic symphysis. Normal bilateral ischial tuberosities. Normal visualized femoral head. Normal acetabulum. Normal hip joint. RAD/HIP, UNI W/ Pelvis 2-3 Views IMPRESSION: No abnormality of the visualized pelvis or proximal femurs. Electronically Signed: Chavez Davis, at 9:31 EST ,
== END | disposition home or self-care (01) ==
PROVIDERS: PCP Internal Medicine; Referring Provider Internal Medicine; Visit Provider Internal Medicine
DX: R10.31 Right lower quadrant pain (principal); M53.3 Sacrococcygeal disorders, not elsewhere classified
CPT/HCPCS: 73502

== ENCOUNTER → 2022-10-18 | Outpatient (CLI) | payer OTHER, SELFPAY ==
--- NOTE | 2022-10-18 14:41 | BI_ITS ---
MAMMOGRAPHY - BILATERAL SCREENING REASON FOR EXAM: Female, 57 years old. Routine annual screening examination. PERTINENT HISTORY: Non-contributory. TECHNIQUE: Digital bilateral breast mahad (3D mammographic acquisition) in the CC and MLO projections. 2-D mediolateral oblique (MLO) and craniocaudad (CC) views of both breasts were obtained. CAD: Full Field Digital Mammography with Computer Added Detection was performed. COMPARISON: Comparison is made with prior study dated October 07, 2021 and December 31, 2019. FINDINGS: Breast Composition: The breasts are heterogeneously dense, which may obscure small masses. There are no dominant masses or suspicious calcifications. Stable benign appearing bilateral axillary lymph nodes. No other significant abnormalities are identified. There has been no significant change since the prior study. BI/SCRN MAMM (CAD)W/MAHAD BILAT IMPRESSION: Stable bilateral screening mammogram. Yearly follow-up mammogram recommended. (A) ASSESSMENT CATEGORY: BIRADS Category 2: Benign. A letter regarding these results will be sent to the patient by the facility within 30 days. Approximately 10% of breast cancers are not detected by mammography. A normal mammogram should not delay biopsy of a clinically suspicious abnormality. [id number] Electronically Signed: Curtis Garrido MD at 8:10 EDT ,
--- NOTE | 2022-10-18 15:00 | BD_ITS ---
STUDY: DUAL ENERGY X-RAY ABSORPTIOMETRY / DXA REASON FOR EXAM: Female, 57 years old. V76.12ScreeningBONE DENSITY REASON FOR EXAM TECHNIQUE: Bone Mineral Density (BMD) measurements of lumbar spine and bilateral hips were obtained. COMPARISON: Comparison is made with prior study dated March 26, 2020. FINDINGS: Lumbar Spine (L1-L4): g/cm2 (0.937) / T-score (-1.0) / Z-score (0.3) Findings are suggestive of normal bone density with a low fracture risk. Left Femur Total: g/cm2 (0.761) / T-score (-1.5) / Z-score (-0.6) Left Femoral Neck: g/cm2 (0.634) / T-score (-1.9) / Z-score (-0.7) Right Femur Total: g/cm2 (0.764) / T-score (-1.5) / Z-score (-0.6) Right Femoral Neck: g/cm2 (0.628) / T-score (-2.0) / Z-score (-0.8) The T-Scores on the most recent prior examination were: Lumbar Spine (L1-L4): There has been worsening of bone density since the previous examination. Left Femur Total: which represents an improvement of 0.9%. Right Femur Total: which represents an improvement of 1.9%. BD/Dexa Bone Density Study IMPRESSION: The patient is considered osteopenic as outlined below according to World Elias Organization (WHO) criteria with a moderate fracture risk. There has been improvement of bone density since the previous examination. Reference Information: The T-score is the number of standard deviations above or below the standard which is normal for young adults at their peak bone mineral density. The World Health Organization (WHO) interprets the T-scores as follows: Above -1 Normal bone density Between -1 and -2.5 Osteopenia Equal to / or below -2.5 Osteoporosis As a practical clinical guideline, osteopenia may be graded as follows: Mild -1 through -1.5 Moderate -1.6 through -2.0 Severe -2.1 through -2.4 The Z-score is the number of standard deviations above or below age-matched controls. A Z-score of less than -1.5 would be considered abnormal. References: 1. NIH Osteoporosis and Related Bone Diseases www osteo.org 2. International Society for Clinical Densitometry www iscd.org 3. National Osteoporosis Foundation www nof.org Electronically Signed: Curtis Garrido MD at 7:45 EDT ,
== END | disposition home or self-care (01) ==
PROVIDERS: PCP Internal Medicine; Referring Provider Internal Medicine; Visit Provider Internal Medicine
DX: Z12.31 Encounter for screening mammogram for malignant neoplasm of breast (principal); Z13.820 Encounter for screening for osteoporosis; Z78.0 Asymptomatic menopausal state; M85.80 Other specified disorders of bone density and structure, unspecified site
CPT/HCPCS: 77063; 77067; 77080

== ENCOUNTER → 2023-12-12 | Outpatient (CLI) | payer OTHER, SELFPAY ==
--- NOTE | 2023-12-12 17:12 | BI_ITS ---
MAMMOGRAPHY - BILATERAL SCREENING REASON FOR EXAM: Female, 58 years old. Routine annual screening examination. PERTINENT HISTORY: Non-contributory. TECHNIQUE: Digital bilateral breast mahad (3D mammographic acquisition) in the CC and MLO projections. 2-D mediolateral oblique (MLO) and craniocaudad (CC) views of both breasts were obtained. CAD: Full Field Digital Mammography with Computer Added Detection was performed. COMPARISON: Comparison is made with prior study dated October 18, 2022 and October 07, 2021. FINDINGS: Breast Composition: The breasts are heterogeneously dense, which may obscure small masses. There are no dominant masses or suspicious calcifications. Stable small benign-appearing bilateral axillary lymph nodes. No other significant abnormalities are identified. There has been no significant change since the prior study. BI/SCRN MAMM (CAD)W/MAHAD BILAT IMPRESSION: Stable bilateral screening mammogram. Yearly follow-up mammogram recommended. (A) ASSESSMENT CATEGORY: BIRADS Category 2: Benign. A letter regarding these results will be sent to the patient by the facility within 30 days. Approximately 10% of breast cancers are not detected by mammography. A normal mammogram should not delay biopsy of a clinically suspicious abnormality. [id number] Electronically Signed: Curtis Garrido MD at 8:22 EDT ,
== END | disposition home or self-care (01) ==
LOC: OPBI 12-13 07:19
PROVIDERS: PCP Internal Medicine; Referring Provider Internal Medicine; Visit Provider Internal Medicine
DX: Z12.31 Encounter for screening mammogram for malignant neoplasm of breast (principal)
CPT/HCPCS: 77063; 77067

== ENCOUNTER → 2024-08-06 | Outpatient (CLI) | payer OTHER, SELFPAY ==
--- NOTE | 2024-08-06 06:51 | CT_ITS ---
PROCEDURE: LIMITED CHEST CT CARDIAC ONLY REASON FOR EXAM: HYPERLIPIDEMIA, TECHNIQUE: Supine chest CT without contrast. One or more dose reduction techniques were used (e.g., Automated exposure control, adjustment of the mA and/or kV according to patient size, use of iterative reconstruction technique). COMPARISON: Prior study dated January 01, 2022. FINDINGS: Hardware: None Lymph nodes: No significant lymph nodes are seen. Heart and Vasculature: Normal heart size. No pericardial effusion. Coronary Artery Calcifications: Present Lungs and Airways: The lungs are normally expanded and clear. No septal thickening nodules or abnormal pulmonary opacities. Pleura: No pleural effusion. Upper Abdomen: Unremarkable Bones: Degenerative changes of the thoracic spine. CT/Limited Chest CT Cardiac Only IMPRESSION: Coronary artery calcification (CAC) is is present Reading Location: [place] [id number]
--- NOTE | 2024-08-06 07:06 | CT_ITS ---
EXAM: CT Chest Without Intravenous Contrast CLINICAL INDICATION: TOBACCO USE, IN REMISSION TECHNIQUE: Axial computed tomography images of the chest without intravenous contrast. This CT exam was performed using one or more of the following dose reduction techniques: automated exposure control, adjustment of the mA and/or kV according to patient size, and/or use of iterative reconstruction technique. COMPARISON: Prior chest 01/01/2022 FINDINGS: LUNGS AND PLEURAL SPACES: Lung emphysema/COPD with bilateral apical scarring. Stable 4 mm nodule of the lateral right lower lobe. No consolidation. No pneumothorax. No significant effusion. HEART: Unremarkable. No cardiomegaly. No significant pericardial effusion. No significant coronary artery calcifications. BONES/JOINTS: Unremarkable. No acute fracture. No dislocation. SOFT TISSUES: Unremarkable. VASCULATURE: Unremarkable. No thoracic aortic aneurysm. LYMPH NODES: Unremarkable. No enlarged lymph nodes. CT/Low Dose CT Lung Screening IMPRESSION: 1. Stable 4 mm nodule of the lateral right lower lobe. 2. LUNG-RADS 2: Benign. Continue low-dose CT screening of the chest in 12 mon ths is recommended. Reading Location: [facility]
--- NOTE | 2024-08-06 16:29 | CA.SCORE ---
Calcium Scoring Date of Study:: 08/06/24 Coronary Calcium Scoring: High-resolution Computed Tomographic imaging of the chest was performed on [08/06/24 ], with particular attention paid to the coronary arteries. Images from the examination were analyzed for the presence and extent of coronary artery calcification , using coronary calcium quantification software. The patient tolerated the procedure well and there were no complications. The results of the coronary calcification analysis are provided below. Findings Coronary Artery Left Main (LM): 0 Left Anterior Descending (LAD): 50 Left Circumflex (LCX): 0 Right Coronary Artery (RCA): 0 Total Agatston Score: 50 Percentile Rankin-75% Calcium Scoring Interpretation: Different methods to categorize the overall amount of coronary plaque. Overall amount CAC SIS Visual of coronary plaque P1 Mild -100 <2 1-2 vessels with mild amount of plaque P2 Moderate 101-300 3-4 1-2 vessels with moderate amount, 3 vessels with mild amount of plaque P3 Severe 301-999 5-7 3 vessels with moderate amount, 1 vessel with severe amount of plaque P4 Extensive >1000 >8 2-3 vessels with severe amount of plaque Calcium Score: Mild: 1-2 vessels w/mild amount of plaque Conclusion: Mild plaque in a single vessel.
[2024-08-06 18:17] LABS: CRP < 3.00 mg/L (0.0-3.0)
[2024-08-09 07:07] LABS: Endomysial Antibody IgA Negative (Negative); Immunoglobulin A 99 mg/dL (87-352); t-Transglutaminase IgA <2 U/mL (0-3)
== END | disposition home or self-care (01) ==
PROVIDERS: PCP Internal Medicine; Referring Provider Internal Medicine; Visit Provider Internal Medicine
DX: Z12.2 Encounter for screening for malignant neoplasm of respiratory organs (principal); Z87.891 Personal history of nicotine dependence; E78.5 Hyperlipidemia, unspecified; R10.9 Unspecified abdominal pain
CPT/HCPCS: 36415; 71271; 75571; 76380; 82784; 83516; 86140; 86255

== ENCOUNTER 2024-08-07 12:51 | Emergency (ER) | payer OTHER, SELFPAY ==
[2024-08-07] VITALS (9 sets, daily range): BP systolic 110–181; BP diastolic 60–106; PULSE 47–81; RESP 14–17; TEMP 36.8–37; O2SAT 98–99; BMI 25.3
--- NOTE | 2024-08-07 13:24 | EKG12_ITS ---
Test Reason : CP Blood Pressure : */* mmHG Vent. Rate : 59 BPM Atrial Rate : 59 BPM P-R Int : 148 ms QRS Dur : 78 ms QT Int : 434 ms P-R-T Axes : 69 82 39 degrees QTcB Int : 429 ms Sinus bradycardia Nonspecific ST abnormality Abnormal ECG Confirmed by PEARL GUPTA, ARCHANA ([id number]), editorial assistant DEMETRIA BAEZ ([id number]) on 08/13/2024 6:44:13 AM Referred By: Confirmed By: ARCHANA KANG MD
[2024-08-07 13:39] LABS: Absolute Lymphocyte Count 4.41 X10^3/uL (0.83-4.51); Absolute Neutrophil Count 3.2 X10^3/uL (2.0-7.7); Basophil# 0.05 X10^3/uL; Basophil% 0.6 % (0-1); Eosinophil# 0.46 X10^3/uL; Eosinophils% 5.3 % (0-5); Hematocrit 40.6 % (37-47); Hemoglobin 13.9 g/dL (12.0-15.0); Lymphocyte # 4.41 X10^3/ul (0.83-4.51); Lymphocyte % 50.8 % (19-41); Mean Corp Hgb Conc 34.2 g/dL (32-36); Mean Corpuscular Hgb 31.7 pg (27.0-32.0); Mean Corpuscular Volume 92.5 fL (81-99); Mean Platelet Vol. 9.9 fl (6.2-12.0); Monocyte# 0.56 X10^3/uL; Monocyte% 6.5 % (0-10); NRBC Flagged by Analyzer 0 % (0-5); Neutrophil # 3.18 X10^3/uL (2.7-7.7); Neutrophil % 36.6 % (47-70); Platelet Count 334 K/mm3 (150-450); RBC Distribution Width CV 12.5 % (11.6-14.6); RBC Distribution Width SD 42.9 fl (35.1-43.9); Red Blood Count 4.39 M/mm3 (4.2-5.4); White Blood Count 8.7 K/mm3 (4.4-11.0)
--- NOTE | 2024-08-07 13:42 | RAD_ITS ---
EXAM: XR Chest, 1 View CLINICAL INDICATION: CHEST PAIN TECHNIQUE: Frontal view of the chest. COMPARISON: No relevant prior studies available. FINDINGS: LUNGS AND PLEURAL SPACES: Unremarkable. No consolidation. No pneumothorax. HEART: Unremarkable. No cardiomegaly. MEDIASTINUM: Unremarkable. Normal mediastinal contour. BONES/JOINTS: Unremarkable. No acute fracture. RAD/Chest 1 View (Portable) IMPRESSION: No acute cardiopulmonary process. Reading Location[facility]
[2024-08-07 14:00] LABS: Troponin T High Sensitivity 8 ng/L (<=14)
[2024-08-07 14:02] LABS: Anion Gap 13 (5-15); BUN 12 mg/dL (4-19); BUN/Creat Ratio 11.1 RATIO (10-20); Calcium,Total 9.9 mg/dL (7.6-11.0); Carbon Dioxide 23.3 mmol/L (21.0-32.0); Chloride 103 mmol/L (98-108); Creatinine, Serum 1.09 mg/dL (0.70-1.20); EST Glomerular Filtration Rate 58 (>60); Estimated Creatinine Clearance 51.67 ml/min (50-250); Glucose 86 mg/dL (70-99); Sodium Level 140 mmol/L (133-145)
--- NOTE | 2024-08-07 14:06 | EX.ED.DYSGE1 ---
HPI History of Present Illness Chief Complaint: Chest Pain Narrative Narrative: 59-year-old female who denies significant past medical history presents with multiple somatic complaints and feelings of lightheadedness and dizziness that she has been having for the past few months. She relates history that she was worked up in 2020 for chest heaviness and similar symptoms. She reports that she had an outpatient stress test that was negative. Since then, on occasion she has these periods where she feels a strange sensation in her epigastrium and chest and it radiates up to both arms and down both arms as well. Afterwards, she feels lightheaded and dizzy. It only lasts 10 to 15 seconds. She thinks it may be happening more frequently. It did not happen yesterday, but before that it happened 2 or 3 times last month. No exacerbating or alleviating factors. It happened earlier today approximately 2-1/2 hours ago. She denies any nausea or vomiting associated with this, no shortness of breath, no DVT or PE risk factors, but at times, she states she feels throbbing in her chest as well as ringing in her ears. PFSH PFS Home Medications ?Medication ?Instructions ?Recorded ?Last Taken ?Type NK 10/17/18 Unknown History Allergy/AdvReac Type Severity Reaction Status Date / Time No Known Allergies Allergy Verified 10/17/18 13:11 Surgical History S/P appendectomy Social History Smoking Status: Former smoker ROS ROS ED ROS Narrative Constitutional: No fever, no chills. HEENT: No sore throat. No neck pain. No loss of vision. No rhinorrhea. Cardiovascular: Positive chest pain. No palpitations. No pedal edema. Respiratory: No cough, no shortness of breath. Abdominal: No abdominal pain. No nausea. No vomiting. Musculoskeletal: No myalgias. No arthralgias. Neurologic: No headaches. Positive lightheadedness and dizziness-resolved. Occasional tinnitus. EXAM Physical Exam Narrative Exam Narrative: Afebrile. Vital signs noted. Nontoxic-appearing. Cardiovascular examination reveals regular rate and rhythm. Lungs are clear to auscultation bilaterally. Abdomen is soft and nontender without guarding or rebound. Positive bowel sounds. Neurological examination is nonfocal, nonlateralizing. No pedal edema. Bilateral dorsalis pedis pulses palpable. Const Vital Signs: 08/07/24 12:52 08/07/24 13:47 08/07/24 14:04 Temperature 98.6 F Temperature Source Oral Pulse Rate 81 51 L Respiratory Rate 16 16 Blood Pressure 181/92 H 156/71 H Blood Pressure Mean 121 99 Pulse Ox 99 98 Oxygen Delivery Method Room Air Room Air 08/07/24 14:39 08/07/24 14:45 08/07/24 15:00 Temperature Temperature Source Pulse Rate 56 L 54 L 56 L Respiratory Rate 17 17 16 Blood Pressure 136/77 H 129/65 H 141/106 H Blood Pressure Mean 96 86 117 Pulse Ox Oxygen Delivery Method 08/07/24 15:17 Temperature Temperature Source Pulse Rate 51 L Respiratory Rate 14 Blood Pressure 114/72 Blood Pressure Mean 86 Pulse Ox Oxygen Delivery Method MDM MDM MDM Narrative Medical decision making narrative: Initially, patient had elevated blood pressure 181/92. Differential diagnosis includes but not limited to ACS versus hypertensive urgency versus emergency. I have low suspicion for stroke given her nonfocal, nonlateralizing examination. I do not feel CT of the brain is indicated. While I had ordered an antihypertensive, her blood pressure initially came down to 159 systolic. It will be monitored before administration. EKG was obtained and interpreted by myself independently as sinus bradycardia at 59 bpm without ectopy or acute ST changes. No STEMI. I reviewed her laboratory work and she has normal white count of 8.7 with hemoglobin 13.9, hematocrit 40.6, platelet count 334. Electrolyte panel is grossly unremarkable with a BUN of 12 and creatinine 1.09, normal sodium of 140 and potassium 4.0. Glucose 86. Initial high-sensitivity troponin is 8. Chest x-ray 1 view interpreted by myself independently shows no evidence of pneumonia or pneumothorax. I reviewed the radiology report which confirms my independent interpretation. On repeat examination, her blood pressure has come down to 114/72, then slightly crow to 134 systolic. She is asymptomatic with this. This is without intervention. As long as her delta troponin is negative, I feel she can be discharged to follow-up with her primary care provider. She was told to keep a log of her blood pressures and by a blood pressure cuff so that she can keep a log of her blood pressures. I did review her repeat troponin and her 2-hour is 12 for an acceptable delta troponin. I feel she can be discharged to follow-up. Return instructions to the emergency department were reviewed. Disposition is discharged home in stable condition. History & Record Review Discussion w/independent historian: Patient and Family (Son) Additional record(s) reviewed:: Prior ED visit (No visits since 2018, noncontributory to current chief complaint.) Lab Data Attestation: I reviewed the patient's lab results. Labs: Laboratory Results - last 24 hr 08/07/24 08/07/24 13:18 15:30 WBC 8.7 RBC 4.39 Hgb 13.9 Hct 40.6 MCV 92.5 MCH 31.7 MCHC 34.2 RDW Std Deviation 42.9 RDW Coeff of Jeff 12.5 Plt Count 334 MPV 9.9 Immature Gran % (Auto) 0.200 Neut % (Auto) 36.6 L Lymph % (Auto) 50.8 H Morrow % (Auto) 6.5 Eos % (Auto) 5.3 H Baso % (Auto) 0.6 Absolute Neuts (auto) 3.2 Absolute Lymphs (auto) 4.41 Nucleated RBC % 0 Sodium 140 Potassium 4.0 Chloride 103 Carbon Dioxide 23.3 Anion Gap 13 BUN 12 Creatinine 1.09 Estim Creat Clear Calc 51.67 Est GFR (MDRD) Non-Af 58 L BUN/Creatinine Ratio 11.1 Glucose 86 Calcium 9.9 Troponin T High Sens 8 Troponin T Hi Sens 2 Hr 12 Radiography Diagnostic Testing: Clinical Impression(s) from Imaging Studies Chest X-Ray 08/07/24 13:42 IMPRESSION: No acute cardiopulmonary process. Reading Location: [facility] Discharge Plan Triage Chief Complaint: Chest Pain ED Provider: Param Smith Dx/Rx/DC Orders Clinical Impression: Chest discomfort, Lightheadedness, Elevated blood pressure reading without diagnosis of hypertension Instructions: ED Chest Pain, Uncertain Cause, ED Dizziness, Uncertain Cause, ED Hypertension, To Be Confirmed Prescriptions: No Action NK Primary Care Provider: Gia Gauthier Referrals: Gia Gauthier DO [Primary Care Provider] - 1 Week Activity Restrictions/Additional Instructions: Return to the emergency department with continued elevated blood pressure readings, new or worsening symptoms. Keep a log of your blood pressures for your primary care provider. Print Language: [place] Citizen Disposition Disposition: Home, Self Care
[2024-08-07 15:59] LABS: Troponin T High Sens 2 HR 12 ng/L (<=14)
== END 2024-08-07 16:19 | disposition home or self-care (01) ==
PROVIDERS: Emergency Provider Emergency Medicine; PCP Internal Medicine; Visit Provider Emergency Medicine
DX: R07.89 Other chest pain (principal); R42 Dizziness and giddiness; R03.0 Elevated blood-pressure reading, without diagnosis of hypertension; Z87.891 Personal history of nicotine dependence
CPT/HCPCS: 71045; 80048; 84484; 85025; 93005; 99284; A4216